=== PATIENT | female | born 1965 | race Two or more races ===

== ENCOUNTER 2020-12-20 05:35 | Day surgery (SDC) | payer OTHER | END 2020-12-20 10:20 | disposition home or self-care (01) | LOC: AMB-ENDOS 05:35 | PROVIDERS: ATTEND Surgery | DX: K62.1 Rectal polyp (principal); A63.0 Anogenital (venereal) warts; Z12.11 Encounter for screening for malignant neoplasm of colon; Z20.828 Contact with and (suspected) exposure to other viral communicable diseases ==